=== PATIENT | female | born 1995 | race Two or more races ===

== ENCOUNTER 2018-12-18 01:16 | Emergency (ER) | payer OTHER ==
[~2018-12-18] VITALS: Ht 162.6 cm; Wt 63.5 kg
[2018-12-18] MEDS ORDERED: PRENA1 TRUE CO1 EACH (01:27)
[2018-12-18] MEDS ORDERED: PEPCID40 MG PO (08:45)
[2018-12-18] MEDS ORDERED: ZOFRAN4 MG PO (08:45)
== END 2018-12-18 08:55 | disposition home or self-care (01) ==
LOC: ER 01:16
DX: B34.9 Viral infection, unspecified (principal); R50.9 Fever, unspecified

== ENCOUNTER → 2018-12-21 | Emergency (ER) | payer OTHER ==
[~2018-12-21] VITALS: Ht 162.6 cm; Wt 62.6 kg
[~2018-12-21] MED LIST: PEPCID40 MG PO; PRENA1 TRUE CO1 EACH; ZOFRAN4 MG PO
== END | disposition left against medical advice (07) ==
LOC: ER 19:26
DX: Z53.20 Procedure and treatment not carried out because of patient's decision for unspecified reasons (principal)

== ENCOUNTER 2018-12-22 00:34 | Inpatient (IN) | payer OTHER ==
[~2018-12-22] VITALS: Ht 162.6 cm; Wt 62.6 kg
== END 2018-12-29 11:03 | disposition home or self-care (01) | DRG 832 ==
LOC: LDR 00:34
PROVIDERS: ADMIT Obstetrics & Gynecology
PROC: BY4FZZZ Ultrasonography of Third Trimester, Single Fetus (ICD-10-PCS; principal; 2018-12-22)
PROC: 4A1HXCZ Monitoring of Products of Conception, Cardiac Rate, External Approach (ICD-10-PCS; 2018-12-22)
PROC: 30233N1 Transfusion of Nonautologous Red Blood Cells into Peripheral Vein, Percutaneous Approach (ICD-10-PCS; 2018-12-24)
PROC: 4A033R1 Measurement of Arterial Saturation, Peripheral, Percutaneous Approach (ICD-10-PCS; 2018-12-24)
PROC: 8E0ZXY6 Isolation (ICD-10-PCS; 2018-12-24)
DX: O99.013 Anemia complicating pregnancy, third trimester (principal); O23.23 Infections of urethra in pregnancy, third trimester; O47.03 False labor before 37 completed weeks of gestation, third trimester; R74.0 Nonspecific elevation of levels of transaminase and lactic acid dehydrogenase [LDH]; B96.0 Mycoplasma pneumoniae [M. pneumoniae] as the cause of diseases classified elsewhere; Z88.1 Allergy status to other antibiotic agents; Z34.03 Encounter for supervision of normal first pregnancy, third trimester
CPT/HCPCS: 240

== ENCOUNTER 2019-03-02 11:45 | Inpatient (IN) | payer OTHER ==
[~2019-03-02] VITALS: Ht 162.6 cm; Wt 71.2 kg
== END 2019-03-13 14:43 | disposition home or self-care (01) | DRG 788 ==
LOC: LDR 03-10 07:12 → OB/GYN 03-10 07:12 → LDR 03-10 12:49 → OB/GYN 03-10 22:53
PROVIDERS: ADMIT Obstetrics & Gynecology
PROC: 3E033VJ Introduction of Other Hormone into Peripheral Vein, Percutaneous Approach (ICD-10-PCS; 2019-03-10)
PROC: 4A1HXCZ Monitoring of Products of Conception, Cardiac Rate, External Approach (ICD-10-PCS; 2019-03-10)
PROC: 10D00Z1 Extraction of Products of Conception, Low, Open Approach (ICD-10-PCS; principal; 2019-03-10 20:00)
DX: O82 Encounter for cesarean delivery without indication (principal); O61.0 Failed medical induction of labor; Z3A.39 39 weeks gestation of pregnancy; Z37.0 Single live birth